=== PATIENT | male | born 1965 | race Caucasian/White ===

== ENCOUNTER → 2017-08-16 | Outpatient (CLI) | payer OTHER ==
[~2017-08-16] MED LIST: ADVIL100 M2; SINGULAIR 10 MG10 M1 PO; ZOFRAN ODT4 MG PO; ZYRTEC10 M5 PO; [UNRECOGNIZED DRUG - REMARK]
== END ==
LOC: M.RAD 15:09
DX: J45.901 Unspecified asthma with (acute) exacerbation (principal); R06.02 Shortness of breath

== ENCOUNTER 2017-09-12 17:42 | Emergency (ER) | payer OTHER ==
[~2017-09-12] VITALS: Ht 180.3 cm; Wt 83.9 kg
[~2017-09-12 17:42] MED LIST changes: -SINGULAIR 10 MG10 M1 PO; -ZOFRAN ODT4 MG PO; -ZYRTEC10 M5 PO
[2017-09-12] MEDS ORDERED: SINGULAIR 10 MG10 M1 PO (17:46)
[2017-09-12] MEDS ORDERED: ZYRTEC10 M5 PO (17:46)
[2017-09-12] MEDS ORDERED: ZOFRAN ODT4 MG PO (19:12)
[2017-09-12 20:02] VITALS: BP 141/87
== END 2017-09-12 20:04 | disposition home or self-care (01) ==
LOC: M.ERS 17:42
DX: S52.592A Other fractures of lower end of left radius, initial encounter for closed fracture (principal); Z86.73 Personal history of transient ischemic attack (TIA), and cerebral infarction without residual deficits; W18.39XA Other fall on same level, initial encounter; Y93.89 Activity, other specified; Y92.89 Other specified places as the place of occurrence of the external cause; Y99.8 Other external cause status

== ENCOUNTER → 2020-01-16 | Outpatient (CLI) | payer MEDICARE ==
[~2020-01-16] MED LIST changes: +SINGULAIR 10 MG10 M1 PO; +ZOFRAN ODT4 MG PO; +ZYRTEC10 M5 PO
== END ==
LOC: M.LAB 09:41
PROVIDERS: ATTEND Orthopaedic Surgery
DX: Z20.828 Contact with and (suspected) exposure to other viral communicable diseases (principal); M70.41 Prepatellar bursitis, right knee